=== PATIENT | male | born 1960 | race Caucasian/White ===

== ENCOUNTER 2016-07-22 12:45 | Emergency (ER) | payer SELFPAY ==
[2016-07-22] MEDS ORDERED: NS 0.9% 1000 ML* 1,000 ML IV ONE (13:16)
[2016-07-22 13:34] LABS: Hematocrit 44 % (42-52); Hemoglobin 14.7 g/dl (14.0-18.0); Mean Corpuscular HGB Conc 34 g/dl (31-36); Mean Corpuscular Hemoglobin 30 pg (27-31); Mean Corpuscular Volume 89 fL (80-94); Mean Platelet Volume 10 um3 (7.4-10.4); Red Blood Count 4.88 10^6/ul (4.0-5.4); Red Cell Distribution Width 12 % (10.5-15); White Blood Count 5.7 10^3/ul (3.5-10.8)
[2016-07-22 13:45] LABS: ALT 69 U/L (7-52); Albumin 4.7 g/dL (3.2-5.2); Alkaline Phosphatase 116 U/L (34-104); BUN/Creatinine Ratio 16.9 (8-20); Blood Urea Nitrogen 25 mg/dL (6-24); C Reactive Protein 4.84 mg/L (< 5.00); CO2 Carbon Dioxide 29 mmol/L (22-32); Calcium 10.4 mg/dL (8.6-10.3); Chloride 91 mmol/L (101-111); EGFR African American 63.5 (>60); EGFR Non-African American 49.3 (>60); Globulin 3.4 g/dL (2-4); Sodium 129 mmol/L (133-145); Total Protein 8.1 g/dL (6.4-8.9)
[2016-07-22 13:47] LABS: Glucose 599 mg/dL (70-100); Troponin I 0.01 ng/mL (<0.04)
[2016-07-22 14:32] LABS: Urine Bilirubin Negative (Negative); Urine Glucose 3+(>=500 mg/dL) (Negative); Urine Nitrite Negative (Negative)
[2016-07-22] MEDS ORDERED: Dextrose 50% Syringe 50 ML* 25 GM/50 ML SYRINGE IV PUSH PRN (15:19)
[2016-07-22] MEDS ORDERED: Insulin LISPRO* 1 UNITS UNIT SUBCUT ONE (15:19)
[2016-07-22 17:21] VITALS: BP 157/74
--- NOTE | 2016-07-22 22:38 | ED ---
Chaim Hay Salem, scribed for Anuel Medrano MD on 07/22/16 at 1318 . HPI Diabetic - HPI Summary HPI Summary: Patient is a 56 y/o male who presents to the ED with high blood sugar since earlier today. He reports a dry mouth and increased urination frequency for the last month. H states his blood sugar was high 5 days ago and he saw his PCP at that time. He was put on a new medication and has been taking it for 3 days. He followed up with his PCP today and sent into the ED from there. He currently denies changes in his vision. Pt states he is on medication for HTN, but denies HLD. - History Of Current Complaint Chief Complaint: EDDiabeticProb Time Seen by Provider: 07/22/16 13:02 Hx Obtained From: Patient Onset/Duration: Gradual Onset, Lasting Weeks Timing: Constant Severity Initially: Moderate Severity Currently: Moderate Character: Alert Aggravating: Nothing Alleviating: Nothing Associated Signs & Symptoms: Negative - Allergies/Home Medications Allergies/Adverse Reactions: Allergies Allergy/AdvReac Type Severity Reaction Status Date / Time No Known Allergies Allergy Verified 07/22/16 13:18 Home Medications: Home Medications Albuterol HFA INHALER* [Ventolin HFA Inhaler*] 2 puff INH QID PRN 07/22/16 [ History Confirmed 07/22/16] Lisinopril/HCTZ 20/25(NF) [Zestoretic 20/25(NF)] 1 tab PO DAILY 07/22/16 [ History Confirmed 07/22/16] [place]-3 Fatty Acids (Nf) [Fish Oil (NF)] 1,000 mg PO DAILY 07/22/16 [History Confirmed 07/22/16] Omeprazole CAP* [Prilosec CAP* 20 MG] 20 mg PO BID 07/22/16 [History Confirmed 07/22/16] Sildenafil Citrate [Viagra] 100 mg PO DAILY PRN 07/22/16 [History Confirmed 03/28] amLODIPine TAB* [Norvasc 5 mg TAB*] 5 mg PO DAILY 07/22/16 [History Confirmed ] metFORMIN* [Glucophage 500 MG TAB *] 500 mg PO BID WITH MEALS 07/22/16 [History Confirmed 07/22/16] PMH/Surg Hx/FS Hx/Imm Hx Endocrine/Hematology History: Reports: Hx Diabetes Cardiovascular History: Reports: Hx Hypertension Denies: Hx Pacemaker/ICD Respiratory History: Denies: Hx Asthma Musculoskeletal History: Denies: Hx Rheumatoid Arthritis, Hx Osteoporosis Sensory History: Denies: Hx Hearing Aid Psychiatric History: Denies: Hx Panic Disorder Infectious Disease History: No Infectious Disease History: Denies: Traveled Outside the [place] in Last 30 Days - Family History Known Family History: Positive: Diabetes - Mother. , Other - [place] - brother. - Social History Alcohol Use: Occasionally Hx Substance Use: No Substance Use Type: Reports: None Hx Tobacco Use: No Smoking Status (MU): Never Smoked Tobacco Review of Systems Negative: Fever Positive: Other - Dry mouth. No changes in vision. Positive: Other - High blood sugar. Positive: frequency All Other Systems Reviewed And Are Negative: Yes Physical Exam Triage Information Reviewed: Yes Vital Signs On Initial Exam: Initial Vitals Temp Pulse Resp BP Pulse Ox 98.9 F 81 16 174/85 94 07/22/16 12:50 07/22/16 12:50 07/22/16 12:50 07/22/16 12:50 07/22/16 12:50 Vital Signs Reviewed: Yes Appearance: Positive: Well-Appearing, No Pain Distress, Obese Skin: Positive: Warm, Skin Color Reflects Adequate Perfusion, Dry Head/Face: Positive: Normal Head/Face Inspection Eyes: Positive: Normal Neck: Positive: Supple, Nontender Respiratory/Lung Sounds: Positive: Clear to Auscultation, Breath Sounds Present Cardiovascular: Positive: RRR Abdomen Description: Positive: Nontender, Soft Bowel Sounds: Positive: Present Musculoskeletal: Positive: Normal Neurological: Positive: Normal Psychiatric: Positive: Normal, Affect/Mood Appropriate - Esteban Coma Scale Coma Scale Total: 15 Diagnostics - Vital Signs Vital Signs Temp Pulse Resp BP Pulse Ox 07/22/16 13:05 80 92 07/22/16 13:03 178/86 07/22/16 12:50 98.9 F 81 16 174/85 94 - Laboratory Lab Results: Lab Results 07/22/16 07/22/16 07/22/16 Range/Units 13:10 13:10 13:10 WBC 5.7 (3.5-10.8) 10^3/ul RBC 4.88 (4.0-5.4) 10^6/ul Hgb 14.7 (14.0-18.0) g/dl Hct 44 (42-52) % MCV 89 (80-94) fL MCH 30 (27-31) pg MCHC 34 (31-36) g/dl RDW 12 (10.5-15) % Plt Count 150 (150-450) 10^3/ul MPV 10 (7.4-10.4) um3 Neut % (Auto) 70.8 (38-83) % Lymph % (Auto) 20.4 L (25-47) % Ponce % (Auto) 7.0 (1-9) % Eos % (Auto) 1.3 (0-6) % Baso % (Auto) 0.5 (0-2) % Absolute Neuts (auto) 4.0 (1.5-7.7) 10^3/ul Absolute Lymphs (auto) 1.2 (1.0-4.8) 10^3/ul Absolute Monos (auto) 0.4 (0-0.8) 10^3/ul Absolute Eos (auto) 0.1 (0-0.6) 10^3/ul Absolute Basos (auto) 0 (0-0.2) 10^3/ul Absolute Nucleated RBC 0 10^3/ul Nucleated RBC % 0.1 Sodium 129 L (133-145) mmol/L Potassium TNP Chloride 91 L (101-111) mmol/L Carbon Dioxide 29 (22-32) mmol/L Anion Gap TNP BUN 25 H (6-24) mg/dL Creatinine 1.48 H (0.67-1.17) mg/dL Est GFR ( Amer) 63.5 (>60) Est GFR (Non-Af Amer) 49.3 (>60) BUN/Creatinine Ratio 16.9 (8-20) Glucose 599 H* (70-100) mg/dL POC Glucose (mg/dL) (74-106) mg/dL Lactic Acid 1.1 (0.5-2.0) mmol/L Calcium 10.4 H (8.6-10.3) mg/dL Total Bilirubin 0.70 (0.2-1.0) mg/dL AST TNP ALT 69 H (7-52) U/L Alkaline Phosphatase 116 H (34-104) U/L Troponin I 0.01 (<0.04) ng/mL C-Reactive Protein 4.84 (< 5.00) mg/L Total Protein 8.1 (6.4-8.9) g/dL Albumin 4.7 (3.2-5.2) g/dL Globulin 3.4 (2-4) g/dL Albumin/Globulin Ratio 1.4 (1-3) Urine Color Urine Appearance Urine pH (5-9) Ur Specific [place] (1.010-1.030) Urine Protein (Negative) Urine Ketones (Negative) Urine Blood (Negative) Urine Nitrate (Negative) Urine Bilirubin (Negative) Urine Urobilinogen (Negative) Ur Leukocyte Esterase (Negative) Urine Glucose (Negative) 07/22/16 07/22/16 Range/Units 13:11 14:14 WBC (3.5-10.8) 10^3/ul RBC (4.0-5.4) 10^6/ul Hgb (14.0-18.0) g/dl Hct (42-52) % MCV (80-94) fL MCH (27-31) pg MCHC (31-36) g/dl RDW (10.5-15) % Plt Count (150-450) 10^3/ul MPV (7.4-10.4) um3 Neut % (Auto) (38-83) % Lymph % (Auto) (25-47) % Ponce % (Auto) (1-9) % Eos % (Auto) (0-6) % Baso % (Auto) (0-2) % Absolute Neuts (auto) (1.5-7.7) 10^3/ul Absolute Lymphs (auto) (1.0-4.8) 10^3/ul Absolute Monos (auto) (0-0.8) 10^3/ul Absolute Eos (auto) (0-0.6) 10^3/ul Absolute Basos (auto) (0-0.2) 10^3/ul Absolute Nucleated RBC 10^3/ul Nucleated RBC % Sodium (133-145) mmol/L Potassium Chloride (101-111) mmol/L Carbon Dioxide (22-32) mmol/L Anion Gap BUN (6-24) mg/dL Creatinine (0.67-1.17) mg/dL Est GFR ( Amer) (>60) Est GFR (Non-Af Amer) (>60) BUN/Creatinine Ratio (8-20) Glucose (70-100) mg/dL POC Glucose (mg/dL) > 444 H* (74-106) mg/dL Lactic Acid (0.5-2.0) mmol/L Calcium (8.6-10.3) mg/dL Total Bilirubin (0.2-1.0) mg/dL AST ALT (7-52) U/L Alkaline Phosphatase (34-104) U/L Troponin I (<0.04) ng/mL C-Reactive Protein (< 5.00) mg/L Total Protein (6.4-8.9) g/dL Albumin (3.2-5.2) g/dL Globulin (2-4) g/dL Albumin/Globulin Ratio (1-3) Urine Color Straw Urine Appearance Clear Urine pH 6.0 (5-9) Ur Specific [place] 1.025 (1.010-1.030) Urine Protein Negative (Negative) Urine Ketones 1+ H (Negative) Urine Blood Negative (Negative) Urine Nitrate Negative (Negative) Urine Bilirubin Negative (Negative) Urine Urobilinogen Negative (Negative) Ur Leukocyte Esterase Negative (Negative) Urine Glucose 3+(>=500 mg/dl) H (Negative) Result Diagrams: 07/22/16 13:10 07/22/16 13:10 Lab Statement: Any lab studies that have been ordered have been reviewed, and results considered in the medical decision making process. - EKG 1344 EKG Rhythm: Sinus Rhythm - @ 70 bpm. Re-Evaluation - Re-Evaluation First Eval Re-Evaluation Time: 16:40 Diabetic Course/Dx - Course Course Of Treatment: Mr. Rudd was found to have very elevated blood sugar without acidosis. He was treated with fluids and medicine was consulted. They ordered insulin for him and shortly after the patient insisted on leaving. i tried to convince him to stay and warned him of the possible consequences including, coma, or permanent disablility. He was competant to make his own decisions and stated that he had a lot of responsibilities. I encouraged him to return if he changed his mind and we would be happy to take care of him.He promised to take his oral medications and F/u with his PMD in the next couple of days. - Diagnoses Provider Diagnoses: Hyperglycemia - Physician Notifications Discussed Care of Patient With: Dr. Leonard (hospitalist) @ [id number]. Discharge - Discharge Plan Condition: Stable Disposition: HOME Patient Education Materials: Diabetic Hyperglycemia (ED) Referrals: David Perez MD [Primary Care Provider] - Additional Instructions: If you change your mind about being admitted to the hospital, please return and we will take care of you. Otherwise, please follow up with your PCP tomorrow () or Wednesday (07/24/16). Be sure to take your medication. The documentation as recorded by the Chaim capone Salem accurately reflects the service I personally performed and the decisions made by me, Anuel Medrano MD.
== END 2016-07-22 17:19 | disposition home or self-care (01) ==
LOC: ED 12:45
DX: E11.65 Type 2 diabetes mellitus with hyperglycemia (principal); I10 Essential (primary) hypertension
CPT/HCPCS: 36415; 80053; 81003; 83605; 84484; 85025; 86140; 93005; 99282